=== PATIENT | male | born 1955 | race Caucasian/White ===

== ENCOUNTER 2017-12-25 18:17 | Emergency (ER) | payer BC ==
[~2017-12-25] VITALS: Ht 182.9 cm; Wt 109.1 kg
[2017-12-25 18:32] VITALS: BP 177/98
[2017-12-25] MEDS ORDERED: HYDROcodone/acetaminophen 10/325mg tab PO ONE (19:55)
[2017-12-25] MEDS ORDERED: ibuprofen tablet 400 MG TABLET PO ONE (19:55)
[2017-12-25] MEDS ORDERED: morphine 4 MG/ML inj SYRINge IM ONE (19:55)
[2017-12-25] MEDS ORDERED: orphenadrine citrate 60mg/2ml inj. IM ONE (19:55)
[2017-12-25] MEDS ORDERED: HYDR-565 PO (20:09)
[2017-12-25] MEDS ORDERED: ORPH100T2 PO (20:09)
[2017-12-25] MEDS ORDERED: IBUP-1984 PO (20:09)
== END 2017-12-25 20:55 | disposition home or self-care (01) ==
LOC: ER 18:17
DX: S39.012A Strain of muscle, fascia and tendon of lower back, initial encounter (principal); I10 Essential (primary) hypertension; X50.0XXA Overexertion from strenuous movement or load, initial encounter; Y93.89 Activity, other specified; Y92.89 Other specified places as the place of occurrence of the external cause; Y99.8 Other external cause status
CPT/HCPCS: 72100; 96372; 99284; J2270; J2360

== ENCOUNTER 2020-03-07 06:44 | Emergency (ER) | payer BC, OTHER ==
[~2020-03-07] VITALS: Ht 180.3 cm; Wt 120.0 kg
[~2020-03-07 06:44] MED LIST: ORPH100T2 PO
--- NOTE | 2020-03-07 07:06 | NUR ---
X-ray at bedside.
[2020-03-07] MEDS ORDERED: HYDROcodone/acetaminophen 5mg/325mg tablet PO ONE (07:25)
[2020-03-07] MEDS ORDERED: ondansetron 4mg rapidly disintigrating tab PO ONE (07:25)
[2020-03-07] MEDS ORDERED: acetaminophen 325mg tablet PO ONE (07:25)
[2020-03-07] MEDS ORDERED: ketorolac trometh inj. 60 MG/2 ML VIAL IM ONE (07:25)
[2020-03-07 07:59] VITALS: BP 141/95
== END 2020-03-07 08:02 | disposition home or self-care (01) ==
LOC: ER 06:45
DX: M25.572 Pain in left ankle and joints of left foot (principal); I10 Essential (primary) hypertension; G89.29 Other chronic pain; Z79.899 Other long term (current) drug therapy
CPT/HCPCS: 29515; 73610; 96372; 99284; J1885

== ENCOUNTER 2023-07-11 23:42 | Emergency (ER) | payer OTHER ==
[~2023-07-11] VITALS: Ht 180.3 cm; Wt 122.7 kg
[~2023-07-11 23:42] MED LIST changes: -ORPH100T2 PO; +ORPH100T4 PO
[2023-07-12 00:43] LABS: BASOPHILS # (AUTO) 0.1 X10'3 (0-0.2); BASOPHILS % (AUTO) 0.7 % (0-1); EOSINOPHILS # (AUTO) 0.2 X10'3 (0-0.9); EOSINOPHILS % (AUTO) 2.1 % (0-6); HEMATOCRIT 43.3 % (42.0-52.0); HEMOGLOBIN 14.2 g/dl (14.0-17.9); LYMPHOCYTES # (AUTO) 1.4 X10'3 (1.1-4.8); LYMPHOCYTES % (AUTO) 19.4 % (21-51); MEAN CORPUSCULAR HEMOGLOBIN 30.5 PG (27.0-31.0); MEAN CORPUSCULAR HGB CONC 32.8 g/dL (33.0-36.5); MEAN CORPUSCULAR VOLUME 93.1 FL (78-98); MEAN PLATELET VOLUME 8.6 FL (7.4-10.4); MONOCYTES # (AUTO) 0.7 X10'3 (0-0.9); MONOCYTES % (AUTO) 9.4 % (2-12); NEUTROPHILS # (AUTO) 5.1 X10'3 (1.8-7.7); NEUTROPHILS % (AUTO) 68.4 % (42-75); PLATELET COUNT 170 X10'3 (140-440); RED BLOOD COUNT 4.65 X10'6 (4.70-6.10); RED CELL DISTRIBUTION WIDTH 14.3 % (11.5-14.5); WHITE BLOOD COUNT 7.5 X10'3 (4.5-11.0)
[2023-07-12] MEDS ORDERED: albuterol 2.5 MG/3 ML nebule NEB ONE (02:05)
[2023-07-12] MEDS ORDERED: methylPREDNISolone sod succ 125mg/2ml vial IV ONE (02:05)
[2023-07-12] MEDS ORDERED: ipratropium 0.5 MG/2.5ML nebule IH ONE (02:05)
[2023-07-12 02:07] LABS: ALANINE AMINOTRANSFERASE 25 U/L (12-78); ALBUMIN 3.7 G/DL (3.4-5.0); ALKALINE PHOSPHATASE 102 IU/L (46-116); ANION GAP 8 (8-16); ASPARTATE AMINO TRANSFERASE 15 U/L (10-37); BILIRUBIN,TOTAL 0.4 MG/DL (0.1-1.0); BLOOD UREA NITROGEN 36 MG/DL (7-18); BUN/CREATININE RATIO 27.9 (10.0-20.0); CHLORIDE 104 MMOL/L (99-107); CREATININE 1.29 MG/DL (0.60-1.10); GLUCOSE 132 MG/DL (70-104); POTASSIUM 3.7 MMOL/L (3.5-5.1); SODIUM 142 MMOL/L (135-145); TOTAL CARBON DIOXIDE 29.9 MMOL/L (24-32); TOTAL PROTEIN 7.3 G/DL (6.4-8.2); eCRCL 61 ML/MIN; eGFR 56 ML/MIN
[2023-07-12] MEDS ORDERED: metoprolol tartrate 50mg tablet PO ONE (02:15)
[2023-07-12 02:17] LABS: PRO BRAIN NATRIURETIC PEPTIDE 86 PG/ML (0-125)
[2023-07-12 02:40] VITALS: PULSE 96; RESP 20; O2SAT 96
[2023-07-12 02:52] VITALS: PULSE 88; RESP 18; O2SAT 97
[2023-07-12 03:20] VITALS: BP 157/67; PULSE 69; RESP 18; TEMP 97.4; O2SAT 94
== END 2023-07-12 04:00 | disposition home or self-care (01) ==
LOC: ER 23:43
DX: R00.2 Palpitations (principal); I10 Essential (primary) hypertension; G89.29 Other chronic pain; M54.9 Dorsalgia, unspecified; Z79.899 Other long term (current) drug therapy; Z20.822 Contact with and (suspected) exposure to COVID-19
CPT/HCPCS: 36415; 71045; 80053; 83880; 84484; 85025; 87502; 87503; 87811; 94640; 96374; 99285; J2930; 94760

== ENCOUNTER 2023-11-04 04:35 | Emergency (ER) | payer OTHER, MEDICARE ==
[~2023-11-04] VITALS: Ht 180.3 cm; Wt 122.7 kg
[2023-11-04] MEDS: albuterol 2.5 MG/3 ML nebule NEB ONE (04:51)
[2023-11-04 04:53] VITALS: PULSE 95; RESP 20; O2SAT 94
[2023-11-04 05:04] VITALS: PULSE 91; RESP 22; O2SAT 99
[2023-11-04] MEDS: methylPREDNISolone sod succ 125mg/2ml vial IV ONE (05:06)
[2023-11-04 05:25] LABS: BASOPHILS % (AUTO) 0.4 % (0-1); EOSINOPHILS % (AUTO) 0.5 % (0-6); HEMATOCRIT 39.3 % (42.0-52.0); LYMPHOCYTES # (AUTO) 0.6 X10'3 (1.1-4.8); LYMPHOCYTES % (AUTO) 8.4 % (21-51); MEAN CORPUSCULAR HEMOGLOBIN 30.2 PG (27.0-31.0); MEAN CORPUSCULAR VOLUME 91.5 FL (78-98); MEAN PLATELET VOLUME 8.5 FL (7.4-10.4); MONOCYTES # (AUTO) 0.7 X10'3 (0-0.9); MONOCYTES % (AUTO) 9.2 % (2-12); NEUTROPHILS # (AUTO) 5.7 X10'3 (1.8-7.7); NEUTROPHILS % (AUTO) 81.5 % (42-75); PLATELET COUNT 150 X10'3 (140-440); RED BLOOD COUNT 4.29 X10'6 (4.70-6.10); RED CELL DISTRIBUTION WIDTH 14.6 % (11.5-14.5); WHITE BLOOD COUNT 7.1 X10'3 (4.5-11.0)
[2023-11-04 05:46] LABS: ALBUMIN 3.5 G/DL (3.4-5.0); ANION GAP 5 (8-16); BLOOD UREA NITROGEN 14 MG/DL (7-18); BUN/CREATININE RATIO 12.2 (10.0-20.0); CALCIUM 8.8 MG/DL (8.5-10.1); CHLORIDE 101 MMOL/L (99-107); CREATININE 1.15 MG/DL (0.60-1.10); GLUCOSE 157 MG/DL (70-104); PRO BRAIN NATRIURETIC PEPTIDE 667 PG/ML (0-125); SODIUM 138 MMOL/L (135-145); TOTAL CARBON DIOXIDE 32.1 MMOL/L (24-32); eCRCL 67 ML/MIN; eGFR 64 ML/MIN
[2023-11-04] MEDS ORDERED: ALBU18HF2 INH (09:27)
[2023-11-04] MEDS ORDERED: PRED20TA PO (09:27)
[2023-11-04] MEDS ORDERED: DOXY100C43 PO (09:27)
[2023-11-04] MEDS: LORazepam 1 MG tablet PO ONE (09:41)
[2023-11-04 09:45] VITALS: BP 146/89; PULSE 91; RESP 19; TEMP 98.6; O2SAT 94
== END 2023-11-04 09:46 | disposition home or self-care (01) ==
LOC: ER 04:36
DX: J44.1 Chronic obstructive pulmonary disease with (acute) exacerbation (principal); Z20.822 Contact with and (suspected) exposure to COVID-19; I10 Essential (primary) hypertension; G89.29 Other chronic pain; M54.9 Dorsalgia, unspecified
CPT/HCPCS: 36415; 71045; 80048; 83880; 84484; 85025; 87502; 87503; 87811; 93005; 94640; 96374; 99285; J2930; 94760

== ENCOUNTER 2023-12-17 09:03 | Emergency (ER) | payer OTHER, MEDICARE ==
[~2023-12-17] VITALS: Ht 180.3 cm; Wt 120.0 kg
[~2023-12-17 09:03] MED LIST changes: +ALBU18HF2 INH; +DOXY100C43 PO; +PRED20TA PO
[2023-12-17 09:07] VITALS: BP 134/75; PULSE 76; RESP 16; TEMP 98.6; O2SAT 94
[2023-12-17] MEDS ORDERED: PRED20TA PO (10:23)
[2023-12-17] MEDS ORDERED: GABA300C PO (10:23)
[2023-12-17] MEDS: dexamethasone sod phosphate 10mg/ml inj IM STA (11:03)
== END 2023-12-17 14:50 | disposition home or self-care (01) ==
LOC: ER 09:03
DX: M54.31 Sciatica, right side (principal); I10 Essential (primary) hypertension; Z79.899 Other long term (current) drug therapy; Z79.2 Long term (current) use of antibiotics
CPT/HCPCS: 96372; 99283; J1100

== ENCOUNTER 2024-02-29 05:07 | Observation (INO) | payer OTHER ==
[~2024-02-29] VITALS: Ht 175.3 cm; Wt 119.0 kg
[~2024-02-29 05:07] MED LIST changes: +GABA300C PO
[2024-02-29] MEDS: methylPREDNISolone sod succ 125mg/2ml vial IV ONE (05:40)
[2024-02-29] MEDS: ipratropium/albuterol 3ml nebule NEB ONE (05:42)
[2024-02-29 05:43] VITALS: PULSE 63; RESP 17; O2SAT 96
[2024-02-29 05:48] VITALS: PULSE 65; RESP 16
[2024-02-29 05:48] LABS: BASOPHILS % (AUTO) 0.6 % (0-1); EOSINOPHILS % (AUTO) 0.6 % (0-6); HEMOGLOBIN 13.5 g/dl (14.0-17.9); LYMPHOCYTES # (AUTO) 0.9 X10'3 (1.1-4.8); MEAN CORPUSCULAR HEMOGLOBIN 30.6 PG (27.0-31.0); MEAN CORPUSCULAR HGB CONC 32.2 g/dL (33.0-36.5); MEAN CORPUSCULAR VOLUME 95.2 FL (78-98); MEAN PLATELET VOLUME 8.7 FL (7.4-10.4); MONOCYTES # (AUTO) 0.6 X10'3 (0-0.9); NEUTROPHILS # (AUTO) 5.7 X10'3 (1.8-7.7); NEUTROPHILS % (AUTO) 77.8 % (42-75); PLATELET COUNT 179 X10'3 (140-440); RED BLOOD COUNT 4.41 X10'6 (4.70-6.10); RED CELL DISTRIBUTION WIDTH 15.3 % (11.5-14.5); WHITE BLOOD COUNT 7.3 X10'3 (4.5-11.0)
[2024-02-29 06:06] LABS: ALBUMIN 3.9 G/DL (3.4-5.0); ANION GAP 4 (8-16); BLOOD UREA NITROGEN 34 MG/DL (7-18); BUN/CREATININE RATIO 23.1 (10.0-20.0); CHLORIDE 104 MMOL/L (99-107); CREATININE 1.47 MG/DL (0.60-1.10); GLUCOSE 108 MG/DL (70-104); POTASSIUM 5.5 MMOL/L (3.5-5.1); PRO BRAIN NATRIURETIC PEPTIDE 581 PG/ML (0-125); SODIUM 140 MMOL/L (135-145); TOTAL CARBON DIOXIDE 32.2 MMOL/L (24-32); eCRCL 53 ML/MIN; eGFR 48 ML/MIN
[2024-02-29] MEDS ORDERED: magnesium Cl slow-release 64mg tablet PO PRN (08:25)
[2024-02-29] MEDS ORDERED: ondansetron/PF 4mg/2ml inj IV PRN (08:25)
[2024-02-29] MEDS ORDERED: magnesium sulf-water 4G/100mL 100 ML IV PRN (08:25)
[2024-02-29] MEDS ORDERED: HYDROcodone/acetaminophen 5mg/325mg tablet PO PRN (08:25)
[2024-02-29] MEDS ORDERED: acetaminophen 325mg tablet PO PRN ×2 (08:25)
[2024-02-29] MEDS ORDERED: potassium Cl 20 mEq SR tablet PO PRN ×2 (08:25)
[2024-02-29] MEDS ORDERED: magnesium sulf-water 2g/50mL 50 ML IV PRN (08:25)
[2024-02-29] MEDS ORDERED: potassium Cl 40MEQ/1/2NS 520ml 520 ML IV PRN (08:25)
[2024-02-29] MEDS ORDERED: morphine 2 MG/ML inj. syringe IV PRN (08:25)
[2024-02-29] MEDS: normal saline 1000ml 1,000 ML IV SCH (08:58)
[2024-02-29 20:00] VITALS: BP 171/82; PULSE 76; RESP 20; TEMP 98.9; O2SAT 91
[2024-02-29] MEDS: HYDROcodone/acetaminophen 10/325mg tab PO PRN (20:14)
[2024-02-29] MEDS: heparin, porcine 5000 units/ml vial SQ SCH (20:15)
[2024-02-29 21:00] VITALS: RESP 20; O2SAT 91
[2024-02-29 22:00] VITALS: BP 125/88; PULSE 83; RESP 23; TEMP 97; O2SAT 94
[2024-03-01] MEDS: morphine 2 MG/ML inj. syringe IV PRN (00:37)
[2024-03-01] MEDS: HYDROmorphone inj. 0.5 MG/0.5 ML DISP.SYRIN IV ONE (03:29)
[2024-03-01 06:14] LABS: BASOPHILS % (AUTO) 0.2 % (0-1); EOSINOPHILS # (AUTO) 0.1 X10'3 (0-0.9); HEMATOCRIT 38.3 % (42.0-52.0); HEMOGLOBIN 12.4 g/dl (14.0-17.9); LYMPHOCYTES # (AUTO) 1.4 X10'3 (1.1-4.8); LYMPHOCYTES % (AUTO) 18.6 % (21-51); MEAN CORPUSCULAR HEMOGLOBIN 30.2 PG (27.0-31.0); MEAN CORPUSCULAR HGB CONC 32.4 g/dL (33.0-36.5); MONOCYTES # (AUTO) 0.7 X10'3 (0-0.9); MONOCYTES % (AUTO) 9.5 % (2-12); NEUTROPHILS # (AUTO) 5.5 X10'3 (1.8-7.7); NEUTROPHILS % (AUTO) 70.7 % (42-75); PLATELET COUNT 187 X10'3 (140-440); RED BLOOD COUNT 4.13 X10'6 (4.70-6.10); RED CELL DISTRIBUTION WIDTH 14.8 % (11.5-14.5); WHITE BLOOD COUNT 7.7 X10'3 (4.5-11.0)
[2024-03-01 06:27] LABS: ALBUMIN 3.8 G/DL (3.4-5.0); ANION GAP 5 (8-16); CHLORIDE 104 MMOL/L (99-107); SODIUM 140 MMOL/L (135-145); TOTAL CARBON DIOXIDE 30.6 MMOL/L (24-32)
[2024-03-01 06:39] LABS: ALANINE AMINOTRANSFERASE 20 U/L (12-78); ALBUMIN/GLOBULIN RATIO 1.2 (1.1-1.5); ALKALINE PHOSPHATASE 112 IU/L (46-116); ASPARTATE AMINO TRANSFERASE 14 U/L (10-37); BILIRUBIN,TOTAL 0.7 MG/DL (0.1-1.0); BLOOD UREA NITROGEN 30 MG/DL (7-18); CALCIUM 9.1 MG/DL (8.5-10.1); CREATININE 1.11 MG/DL (0.60-1.10); GLUCOSE 118 MG/DL (70-104); TOTAL PROTEIN 7.1 G/DL (6.4-8.2); eCRCL 65 ML/MIN; eGFR 66 ML/MIN
[2024-03-01 08:00] VITALS: RESP 20; O2SAT 91
== END 2024-03-01 09:03 | disposition left against medical advice (07) ==
LOC: ER 05:08 → ED HOLD 08:29 → PCU 3S 20:20
PROVIDERS: ADMIT Internal Medicine; ATTEND Internal Medicine
DX: R07.89 Other chest pain (principal); N17.9 Acute kidney failure, unspecified; I12.9 Hypertensive chronic kidney disease with stage 1 through stage 4 chronic kidney disease, or unspecified chronic kidney disease; N18.30 Chronic kidney disease, stage 3 unspecified; J44.9 Chronic obstructive pulmonary disease, unspecified; G89.29 Other chronic pain; Z79.899 Other long term (current) drug therapy
CPT/HCPCS: 36415; 71045; 80048; 80053; 83880; 84484; 85025; 87081; 93005; 93306; 94640; 94760; 96361; 96372; 96374; 96375; 99285; G0378; J1170; J1644; J2270; J2919; J7030

== ENCOUNTER 2024-03-02 00:21 | Emergency (ER) | payer OTHER ==
[~2024-03-02] VITALS: Ht 180.3 cm; Wt 122.7 kg
[2024-03-02 00:27] VITALS: BP 149/97; PULSE 73; RESP 17; TEMP 98.2; O2SAT 95
== END 2024-03-02 01:46 | disposition left against medical advice (07) ==
LOC: ER 00:22
DX: R07.9 Chest pain, unspecified (principal); R06.02 Shortness of breath; Z53.21 Procedure and treatment not carried out due to patient leaving prior to being seen by health care provider